=== PATIENT | female | born 1970 | race American Indian/Alaskan Native ===

== ENCOUNTER → 2017-12-30 | Outpatient (CLI) | payer OTHER ==
[~2017-12-30] MED LIST: ALPR.25 PO; CITA20 PO; Cleocin HCl300 MG PO; Crutch1 EACH MISC; IBUP600 PO; IBUP800 PO; LOSA25 PO; NAPR550 PO; ONDA4 PO; OXYACE5T PO; PRED10 PO; Percocet 5-3251 EACH PO; Peridex480 ML PO
[2017-12-30 13:05] LABS: Source, Urine Clean Catch
[2017-12-30 13:30] LABS: Bacteria Not Seen /hpf; Red Blood Cells, Urine 0-2 /hpf (0-2); Squamous Epithelial Cells Mod /hpf (Few); White Blood Cells, Urine Rare /hpf (0-5)
[2017-12-31 20:10] LABS: HCV Non Reactive (NR)
== END ==
LOC: LAB EV 12:44 → LAB SHORT 12:44
PROVIDERS: General Practice
DX: Z72.51 High risk heterosexual behavior (principal)
CPT/HCPCS: 80074; 81015; 86592; 87086; 87389; 87491; 87591